=== PATIENT | male | born 1965 | race Caucasian/White ===

== ENCOUNTER 2016-08-14 17:47 | Emergency (ER) | payer SELFPAY ==
[~2016-08-14] VITALS: Ht 167.6 cm; Wt 85.5 kg
[2016-08-14] MEDS ORDERED: TOPROL XL50 MG PO (19:05)
[2016-08-14 19:15] VITALS: BP 162/111
== END 2016-08-14 19:18 | disposition home or self-care (01) ==
LOC: EME 17:47
DX: I16.0 Hypertensive urgency (principal); R51 Headache
CPT/HCPCS: 70450; 93005; 99281; 99284